=== PATIENT | male | born 1985 | race Caucasian/White ===

== ENCOUNTER 2017-08-26 08:48 | Day surgery (SDC) | payer BC ==
[2017-08-26] MEDS ORDERED: Lactated Ringers 1,000 ML IV SCH (09:00)
[2017-08-26] MEDS ORDERED: Propofol 200 MG/20 ML SDV IV ONE (11:15)
[2017-08-26] MEDS ORDERED: Simethicone Drops 40 MG/0.6 ML 30 ML Bottle ONE (11:44)
--- NOTE | 2017-08-26 11:57 | PCM.OPNOTE ---
- General Post-Op/Procedure Note Date of Surgery/Procedure: 08/26/17 Operative Procedure(s): egd with bx. c scope with bx Findings: gastritis rectal polyp int hemorrhoids Pre Op Diagnosis: hx of gerd epigatristic pain and hematemasis and hematochezia Post-Op Diagnosis: gastritis. rectal polyp. int hemorrhoids Anesthesia Technique: MAC Primary Surgeon: Laz Mason Anesthesia Provider: Annia Arellano Pathology: gastric and esophogeal bx rectal polyp Complications: None Condition: Good Free Text/Narrative:: see dictation
--- NOTE | 2017-08-26 18:45 | OR ---
DATE OF OPERATION: 08/26/2017 SURGEON: Laz Mason MD PROCEDURE PERFORMED: EGD with cold forceps biopsy and colonoscopy with cold forceps biopsy. PREOPERATIVE DIAGNOSES: Epigastric pain, history of gastroesophageal reflux disease, as well as hematemesis and hematochezia. POSTOPERATIVE DIAGNOSIS: Gastritis, normal esophagus, rectal polyp, and internal hemorrhoids. INDICATIONS FOR PROCEDURE: This is a 31-year-old white male who was referred with the above-mentioned complaints. He was offered and accepted an upper and lower endoscopy. DESCRIPTION OF PROCEDURE: After an excellent IV sedation was administered, the bite block was inserted, and the flexible endoscope was passed down the patient's esophagus into the stomach. The stomach was insufflated. The scope was passed through the pylorus to the second portion of the duodenum and slowly withdrawn. The following findings were noted: Duodenum was unremarkable. Stomach demonstrated some mild diffuse gastritis. Biopsies were taken. There was an evidence of a GE junction rather measured at 40 cm, while there was no marked erythema or abnormality noted in the patient's esophagus. Biopsies were taken at the distal esophagus due to his complaint of reflux-like symptoms. The stomach was deflated. Scope was removed. Our attention was then turned to the patient's colon. Digital rectal exam was performed. No marked abnormality was noted. Flexible colonoscope was inserted and advanced to the cecum without difficulty. The prep was excellent. The following findings were noted: Ascending colon unremarkable, transverse colon unremarkable, descending colon unremarkable, sigmoid unremarkable. Rectum: A small polypoid lesion, biopsied with cold biopsy forceps and sent for permanent. On retroflexion of the scope, there was some evidence of internal hemorrhoids which was the presumed cause of his hematochezia. Colon was deflated. Scope was removed. The patient tolerated the procedure well. /[id number] /MODL
== END 2017-08-26 13:10 | disposition home or self-care (01) ==
LOC: FB.SDS 08:48
PROVIDERS: ATTEND Surgery
DX: D12.8 Benign neoplasm of rectum (principal); K29.50 Unspecified chronic gastritis without bleeding; K20.9 Esophagitis, unspecified; K64.8 Other hemorrhoids; K31.9 Disease of stomach and duodenum, unspecified; F32.9 Major depressive disorder, single episode, unspecified; Z79.899 Other long term (current) drug therapy; Z87.891 Personal history of nicotine dependence
CPT/HCPCS: 88305; 88342; A9270-GY; J2704; J7120

== ENCOUNTER 2022-10-12 09:32 | Emergency (ER) | payer BC, MEDICAID ==
[2022-10-12] MEDS ORDERED: HYDROmorphone 2 MG/ML SDV IVPUSH ONE (10:10)
[2022-10-12] MEDS ORDERED: Sodium Chloride 0.9% 1,000 ML IV ONE ×2 (10:10→11:44)
[2022-10-12] MEDS ORDERED: Ondansetron 4 MG/2 ML SDV IVPUSH ONE (10:10)
[2022-10-12] MEDS ORDERED: Sodium Chloride 0.9% 10 ML Syringe FLUSH PRN (10:10)
[2022-10-12 10:29] LABS: ESTIMATED GFR 79 mL/min (>60)
[2022-10-12] MEDS ORDERED: Ketorolac 30 MG/ML SDV IVPUSH ONE (10:51)
[2022-10-12] MEDS ORDERED: Tamsulosin 0.4 MG Cap.ER PO ONE (13:09)
== END 2022-10-12 13:21 | disposition home or self-care (01) ==
LOC: FB.ED 09:32
DX: N20.1 Calculus of ureter (principal); Z72.0 Tobacco use
CPT/HCPCS: 36415; 74176; 80053; 81001; 83690; 83735; 85025; 86140; 96361; 96374; 96375; 99284; A9270; J1170; J1885; J2405; J3490; J7030